=== PATIENT | male | born 1945 | race Caucasian/White ===

== ENCOUNTER → 2018-04-29 09:02 | Outpatient (CLI) | payer MEDICARE, OTHER, SELFPAY | PROVIDERS: PCP Family Medicine | DX: I10 Essential (primary) hypertension (principal); Z87.898 Personal history of other specified conditions | CPT/HCPCS: 36415; 83835 ==

== ENCOUNTER → 2018-05-05 07:16 | Outpatient (CLI) | payer MEDICARE, OTHER, SELFPAY ==
--- NOTE | 2018-05-05 07:21 | DI.RAD.S_ITS ---
PROCEDURE: XR CHEST 2V INDICATIONS: New onset AFib TECHNIQUE: 2 views of the chest were acquired. COMPARISON: [facility], , CHEST 2 VIEW, 07/05/2016, 9:36. FINDINGS: Surgical changes and devices: None. Lungs and pleura: No pleural effusions or pneumothorax. Lungs are clear. Bilateral nipple shadows, unchanged. Mediastinum: Mediastinal contours are normal. Heart size is normal. Mild aortic calcification. Bones and chest wall: No suspicious bony abnormalities. Soft tissues appear unremarkable. IMPRESSION: No acute cardiopulmonary abnormality Dictated by: Landon Daniels M.D. on 05/05/2018 at 8:29 Approved by: Landon Daniels M.D. on 05/05/2018 at 8:30
[2018-05-05 09:45] LABS: Add Manual Diff / Slide Review NO; Basophils Percent Auto 0.9 % (0-2); Eosinophils Percent Auto 1.7 % (2-4); Hematocrit 39.6 % (41-53); Hemoglobin 13.3 g/dL (13.5-17.5); Lymphocytes Percent Auto 33.9 % (25-40); Mean Corpuscular HGB Conc 33.7 % (30-36); Monocytes Percent Auto 8.9 % (3-14); Neutrophils Absolute Auto 2400 /uL (3000-5900); Neutrophils Percent Auto 54.6 % (50-75); Platelet Count 224 X10^3/uL (150-400); Red Blood Cell Count 4.44 X10^6/uL (4.5-5.9); White Blood Cell Count 4.4 X10^3/uL (4.5-11.0)
[2018-05-05 09:59] LABS: B Type Natriuretic Peptide 66.7 (<100)
[2018-05-05 10:01] LABS: Alanine Aminotransferase 27 IU/L (21-72); Albumin 4.2 g/dL (3.5-5.0); Albumin Globulin Ratio 1.5 (1.0-2.8); Alkaline Phosphatase 72 U/L (38-126); Aspartate Aminotransferase 26 IU/L (17-59); BUN Creatinine Ratio 26.7 (6-22); Bilirubin Total 0.6 mg/dL (0.2-1.3); Blood Urea Nitrogen 24 mg/dL (9-20); Carbon Dioxide 28 mmol/L (22-32); Chloride 104 mmol/L (98-107); Estimated Glomerular Filt Rate > 60.0 mL/min (>60); Globulin 2.8 g/dL (1.7-4.1); Glucose 107 mg/dL (80-110); HEMOLYSIS < 15 (0-50); Potassium 4.5 mmol/L (3.4-5.1); Sodium 142 mmol/L (137-145)
[2018-05-05 10:30] LABS: TSH w/ Reflex to FT4 2.33 uIU/mL (0.47-4.68)
== END ==
PROVIDERS: PCP Family Medicine; Visit Provider Family Medicine
DX: I48.91 Unspecified atrial fibrillation (principal)
CPT/HCPCS: 36415; 71046; 80053; 83880; 84443; 85025

== ENCOUNTER → 2018-05-08 09:09 | Outpatient (CLI) | payer MEDICARE, OTHER, SELFPAY ==
--- NOTE | 2018-05-08 09:13 | DI.ECHO.S_ITS ---
[facility]---------+ [facility] +---------+ : : [address] : [address] : : : : [id number] : : : : Phone: [phone] Echocardiogram Report + + :Name: ELIZABETH CHRISTINA Study Date: 05/08/2018 Height: 69 in : :[facility] Weight: 203 lb : : Gender: Male BSA: 2.1 m2 : :: 1945 Age: 73 yrs BP: 140/74 mmHg: :Reason For Study: Atrial fibrillation : : Performed By: Ophelia Escalona : :Referring: GERRI WOOTEN : + + Interpretation Summary 1. Normal left ventricular size, wall thickness and systolic function with an estimated EF of 60-65% 2. Upper limits of normal right ventricular size with normal systolic function. The estimated RVSP is 34 mm Hg. The estimated right atrial pressure is low. 3. Trace aortic insufficiency 4. Mild to moderate mitral regurgitation into a dilated left atrium. Threre is no old study available for review Procedure: A two-dimensional transthoracic echocardiogram with color flow and Doppler was performed. The study quality was technically good. Most of the acoustic windows were suboptimal, but the best imaging was obtained from the subcostal window. The patient was in normal sinus rhythm during the exam. Left Ventricle: The left ventricle is normal in size, wall thickness, and systolic function without any focal wall motion abnormalities. The left ventricle is normal in size. There is normal left ventricular wall thickness. The ejection fraction is estimated to be 60-65%. Grade II diastolic dysfunction. Right Ventricle: The right ventricle is borderline dilated. The right ventricular systolic function is normal. Atria: The left atrium is severely dilated. The right atrium is moderately dilated. No color doppler evidence for an ASD. Mitral Valve: There is a flat closure plane of the the mitral valve leaflets. There is mild to moderate mitral regurgitation. Aortic Valve: The aortic valve opens well. There is trace aortic regurgitation. Tricuspid Valve: The tricuspid valve leaflets are thin and pliable. There is trace tricuspid regurgitation. The right ventricular systolic pressure is estimated at 34 mmHg assuming a right atrial pressure of 3 mm Hg. Pulmonic Valve: The pulmonic valve is not well seen, but is grossly normal. There is mild pulmonic regurgitation. Great Vessels: The aortic root is normal size. The ascending aorta is mildly enlarged. The IVC is of normal diameter and collapses greater than 50% with a sniff. This suggests a low right atrial pressure of 3 mm Hg. Pericardium/ Pleura There is no pericardial effusion. There is no pleural effusion. MMode/2D Measurements & Calculations LVIDd: 5.1 cm Ao root diam: 3.3 cm LVIDs: 2.5 cm Aortic Jxn: 3.0 cm FS: 50.3 % asc Aorta Diam: 3.7 cm EPSS: 0.57 cm Ao Arch Diam (Prox Trans): 3.1 cm IVSd: 1.0 cm LVPWd: 1.1 cm LV hood. diameter/BSA (cm/m^2): 2.5 LV sys. diameter/BSA (cm/m^2): 1.2 LA dimension: 4.3 cm RA long axis: 5.3 cm LA A2 area: 29.0 cm2 RA area: 24.5 cm2 LA A4 area: 26.0 cm2 RA vol: 95.4 ml LA length (vol): 5.9 cm RA : 45.9 ml/m2 LA vol: 108.6 ml IVC diam: 1.1 cm LA vol index: 52.2 ml/m2 Doppler Measurements & Calculations Ao V2 max: 153.7 cm/sec MV E max daniel: 74.1 cm/sec Ao V2 mean: 102.2 cm/sec MV A max daniel: 65.3 cm/sec Ao max P.4 mmHg MV E/A: 1.1 Ao mean P.8 mmHg Med Peak E' Daniel: 3.9 cm/sec Ao V2 VTI: 34.6 cm E/E' med: 19.0 Lat Peak E' Daniel: 7.2 cm/sec E/E' lat: 10.4 E/e' average: 14.7 MV dec time: 0.24 sec MV P1/2t: 70.9 msec TR max daniel: 276.3 cm/sec MV P1/2t max daniel: 73.7 cm/sec TR max P.5 mmHg MVA(P1/2t): 3.1 cm2 PA V2 max: 106.1 cm/sec PA V2 mean: 55.1 cm/sec PA mean P.6 mmHg PA Accel Time: 0.06 sec MR flow rate: 94.8 cm3/sec MR PISA radius: 0.63 cm Reading Physician:KATERINA
== END ==
PROVIDERS: PCP Family Medicine; Visit Provider Family Medicine
DX: I48.91 Unspecified atrial fibrillation (principal)
CPT/HCPCS: 93306

== ENCOUNTER → 2018-05-19 14:00 | Outpatient (CLI) | payer MEDICARE, OTHER, SELFPAY | PROVIDERS: PCP Family Medicine; Visit Provider Family Medicine | DX: I48.91 Unspecified atrial fibrillation (principal) | CPT/HCPCS: 0296T; 0298T ==

== ENCOUNTER → 2018-05-30 08:03 | Outpatient (CLI) | payer MEDICARE, OTHER, SELFPAY ==
--- NOTE | 2018-05-30 09:21 | PM.TREADMILL ---
Cardiac Stress Test Report Referral & Results Date Patient Seen: 05/30/18 Time Patient Seen: 09:21 Requesting provider: Kendrick Gutierrez Indication: New onset paroxysmal atrial fibrillation Rest ECG: Unremarkable, sinus rhythm Procedure Note: Today following both written and verbal informed consent the patient was exercised according to a standard Carroll protocol patient went for a total of 7 min 10 sec achieving a maximum heart rate of 140 maximum systolic blood pressure of 190 to. This is approximately 10.1 METS. Exercise was terminated at this point because of targets having been reached. Patient was also given Cardiolite through a previously started Hep-Lock IV by the nuclear plant instrument technician approximately 1 minute prior to the cessation of exercise. There are no ST segment changes Occasional PACs and PVCs and a barely conducted sinus beats were identified Normal heart rate and blood pressure response to exercise Functional aerobic impairment rated 0 on the sedentary scale, patient's certainly could have continued further had not met his heart rate and blood pressure targets Impression: No evidence of ischemia Better than average exercise capacity Perfusion imaging will be reported separately Please note: Actual ECG tracings can be found in the PACS system.
--- NOTE | 2018-06-02 13:34 | DI.NM.S_ITS ---
DATE OF SERVICE: 05/30/2018 PROCEDURE PERFORMED: Exercise treadmill stress and rest myocardial perfusion imaging study with gating to assess ejection fraction and regional wall motion. ORDERING PROVIDER: Kendrick Gutierrez MD INDICATIONS: The patient is a 73-year-old male with a recent episode of new- onset atrial fibrillation. EXERCISE TREADMILL TESTING: The patient was able to exercise for a total of 7 minutes 10 seconds on a standard Carroll protocol, suggesting average exercise capacity with an DWAYNE of 0%. He had a normal heart rate and blood pressure response, achieving a maximum heart rate of 140 BPM (94% of his predicted maximum). He had no chest discomfort reported. His resting ECG shows sinus rhythm at 63 BPM. With exercise, there are no significant ECG changes or arrhythmias. At 6 minutes 7 seconds of exercise, at a heart rate of 137 BPM, 26.1 mCi of technetium-99 Myoview was injected and the patient was imaged 15 minutes later using a gated SPECT acquisition protocol. The patient returned 3 days later and was reinjected with an additional 24.5 mCi of technetium-99 Myoview and was imaged 30 minutes later, again using a gated SPECT acquisition protocol. FINDINGS: 1. RAW DATA: There was good myocardial tracer uptake. The lung/heart ratio was normal at 0.37 with a normal TID ratio of 0.83. 2. QUANTITATIVE GATED SPECT: Post stress ejection fraction is estimated at 74% without any focal wall motion abnormality. Resting ejection fraction is estimated at 75% with an end-diastolic volume of 106 mL. 3. MYOCARDIAL PERFUSION IMAGING: Post stress supine images show a completely normal myocardial perfusion pattern without any perfusion defects, supported by normal perfusion imaging in the prone position. The resting images show an identical perfusion pattern without any areas of improvement. CONCLUSION: 1. Normal myocardial perfusion study. 2. No evidence for myocardial ischemia or previous myocardial infarction. 3. Normal left ventricular systolic function without any focal wall motion abnormality. 4. Average exercise capacity without angina or ECG changes of ischemia. He remained in sinus rhythm throughout the study without any arrhythmias. Rajan Farhat - WINTER/gabino/vickie doc#: [id number]/job#: [id number] dd: 06/02/2018 12:28:00 dt: 06/02/2018 13:23:00 DICTATING MD/COPIES TO: Cachorro Hernandez MD; Kendrick Gutierrez MD COPIES MNE: KENNA FIGUEROA
== END ==
PROVIDERS: Family Provider Family Medicine; PCP Family Medicine; Visit Provider Family Medicine
DX: I48.91 Unspecified atrial fibrillation (principal)
CPT/HCPCS: 78452; 93016; 93017; 93018; A9502

== ENCOUNTER → 2018-10-22 10:48 | Outpatient (CLI) | payer MEDICARE, OTHER, SELFPAY | PROVIDERS: Family Provider Family Medicine; PCP Family Medicine; Visit Provider Internal Medicine | DX: I10 Essential (primary) hypertension (principal) | CPT/HCPCS: 36415; 83735 ==

== ENCOUNTER 2019-02-20 13:46 | Emergency (ER) | payer MEDICARE, OTHER, SELFPAY ==
[2019-02-20 13:50] VITALS: BP 139/82; PULSE 86; RESP 18; TEMP 36.9; O2SAT 99; BMI 30.1
[2019-02-20 15:20] VITALS: BP 151/73; PULSE 79; RESP 26; O2SAT 98
[2019-02-20] MEDS: SODIUM CHLORIDE 0.9% 1,000 ML 1000 ML IV (15:28)
[2019-02-20 15:30] VITALS: BP 140/75; PULSE 78; RESP 23; O2SAT 97
[2019-02-20 15:38] LABS: Add Manual Diff / Slide Review NO; Basophils Absolute Auto 0 /uL (0-100); Basophils Percent Auto 0.2 % (0-2); Eosinophils Absolute Auto 0 /uL (0-450); Eosinophils Percent Auto 0.3 % (2-4); Hematocrit 42.6 % (41-53); Hemoglobin 14.1 g/dL (13.5-17.5); Lymphocytes Absolute Auto 400 /uL (1100-4500); Lymphocytes Percent Auto 6.9 % (25-40); Mean Corpuscular HGB Conc 33.1 % (30-36); Mean Corpuscular Hemoglobin 29.8 PG (26-34); Monocytes Absolute Auto 200 /uL (0-900); Monocytes Percent Auto 4.1 % (3-14); Neutrophils Absolute Auto 5400 /uL (1500-7000); Neutrophils Percent Auto 88.5 % (50-75); Platelet Count 210 X10^3/uL (150-400); Red Blood Cell Count 4.73 X10^6/uL (4.5-5.9); Red Cell Distribution Width 12.7 % (11.6-14.8); White Blood Cell Count 6.1 X10^3/uL (4.5-11.0)
[2019-02-20 15:44] LABS: Alanine Aminotransferase 28 IU/L (21-72); Albumin 4.7 g/dL (3.5-5.0); Albumin Globulin Ratio 1.4 (1.0-2.8); Alkaline Phosphatase 78 U/L (38-126); Aspartate Aminotransferase 26 IU/L (17-59); BUN Creatinine Ratio 19.1 (6-22); Bilirubin Total 0.9 mg/dL (0.2-1.3); Blood Urea Nitrogen 21 mg/dL (9-20); Calcium 9.5 mg/dL (8.4-10.2); Carbon Dioxide 23 mmol/L (22-32); Chloride 105 mmol/L (98-107); Estimated Glomerular Filt Rate > 60.0 mL/min (>60); Globulin 3.3 g/dL (1.7-4.1); Glucose 130 mg/dL (80-110); HEMOLYSIS < 15 (0-50); Potassium 3.9 mmol/L (3.4-5.1); Sodium 139 mmol/L (137-145)
--- NOTE | 2019-02-20 15:54 | ED.NAVMDI ---
HPI - Nausea/Vomiting/Diarrhea General Chief complaint: Nausea/Vomiting/Diarrhea Stated complaint: SEVERE DIARRHEA Time Seen by Provider: 02/20/19 15:54 Source: patient and family () Mode of arrival: ambulatory Limitations: no limitations History of Present Illness HPI Narrative: This is a 73-year-old male who comes to the emergency department with complaint of nausea and diarrhea. Patient states he just started Flomax yesterday he took his 1st tablet before bed. At about 2:00 a.m. morning he woke up and had probably 10-15 episodes of brown diarrhea. He states about a qt of fluid with each 1. He has been nauseated a little bit but has not been vomiting. He has not drank very much fluid at all he has had a couple small snacks. He denies any abdominal pain, he denies any dizziness, no chest pain, no shortness of breath, no passing out. No fevers that he is aware of. Maybe some very mild nasal congestion, slight dry cough. Feels like he has been run over by a truck has muscle aches. Patient states he was started on the Flomax because he saw a urologist for enlarged prostate. Patient does take medication for atrial fibrillation including Eliquis, he takes amlodipine, spironolactone levothyroxine as well as carvedilol. Patient has had multiple orthopedic surgeries and eye surgeries. 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 Related Data Home Medications Medication Instructions Recorded Confirmed [FLUTICASONE] 1 spray QDAY #0 08/27/16 06/25/18 tolterodine ER 4 mg 4 mg PO DAILY 05/01/18 06/25/18 capsule,extended release 24 hr apixaban [Eliquis] 5 mg PO 02/20/19 Previous Rx's Medication Instructions Recorded ciclopirox [Penlac] 6.6 ml TP QDAY #1 bot 06/25/17 atorvastatin [Lipitor] 40 mg PO HS #90 tab 08/13/17 telmisartan [Micardis] 80 mg PO QDAY #90 tab 08/13/17 rivaroxaban 20 mg tablet 20 mg PO DAILY #30 tab 05/01/18 metoprolol succinate ER 50 mg See Rx Instructions PO Q12H #270 06/26/18 tablet,extended release 24 hr tab hydrochlorothiazide 25 mg tablet 25 mg PO QDAY #90 tab 07/23/18 levothyroxine 88 mcg capsule 88 mcg PO QDAY #90 cap 07/23/18 Allergies Allergy/AdvReac Type Severity Reaction Status Date / Time No Known Drug Allergies Allergy Unknown Verified 06/25/18 13:41 [NO KNOWN DRUG ALLERGIES] Review of Systems Review of Systems ROS Unobtainable: All systems reviewed & are unremarkable except as noted in HPI and below Constitutional Denies chills, Denies fever(s), Denies lethargy, Reports poor appetite and Denies weakness Cardiovascular Denies chest pain, Denies diaphoresis, Denies syncope, Denies edema, Denies lightheadedness, Denies palpitations, Denies dyspnea, Denies dyspnea on exertion and Denies orthopnea Respiratory Denies chest congestion, Denies cough, Denies dyspnea, Denies dyspnea on exertion, Denies stridor and Denies wheezing Gastrointestinal Gastrointestinal: Denies abdominal pain, Denies melena, Denies hematochezia, Denies change in bowel habits, Reports diarrhea, Reports nausea and Denies vomiting Genitourinary Denies hematuria, Denies flank pain, Denies urinary frequency, Reports urinary hesitancy, Denies urinary incontinence and Denies urinary urgency Integumentary/Breasts Denies rash Neurologic Denies syncope and Denies weakness Endocrine Denies palpitations Allergic/Immunologic Denies wheezing FORMERLY [facility] Medical History Atrial fibrillation (Chronic) Erectile dysfunction (Chronic 10/27/15) Essential hypertension (Chronic 10/27/15) Gastroesophageal reflux disease without esophagitis (Chronic 10/27/15) Hyperlipidemia (Chronic 10/27/15) Hypothyroidism (Chronic 10/27/15) Diverticular disease (Chronic) Chicken pox (Resolved 1951) Colon polyps (Resolved 1992) Dislocation of right middle finger (Resolved 2003) H/O coronary angiogram (Resolved 06/2011) Measles (Resolved 1951) Mumps (Resolved 1952) Shoulder pain (Resolved 2001) Thyroid nodule (Resolved 1978) Surgical History History of adrenal surgery (Resolved 07/2011) History of knee replacement (Resolved 09/2011) History of knee replacement (Resolved 09/2012) History of left cataract surgery (Resolved 10/05/15) History of removal of cyst (Resolved 1962) History of right cataract surgery (Resolved 09/15/15) History of sinus surgery (Resolved 01/2011) History of surgical removal of ganglion cyst (Resolved 2005) History of thyroid surgery (Resolved 1978) Status post arthroscopy (Resolved 1982) Status post arthroscopy (Resolved 04/06/13) Status post colonoscopy (Resolved 07/06/14) Status post hernia repair (Resolved 1971) Status post hernia repair (Resolved 1992) Status post hernia repair (Resolved 2006) Status post left foot surgery (Resolved 2004) Status post right foot surgery (Resolved 09/2014) Status post rotator cuff repair (Resolved 2001) Status post rotator cuff repair (Resolved 2002) Status post tonsillectomy and adenoidectomy (Resolved 1953) Status post trigger finger release (Resolved 2000) Status post trigger finger release (Resolved 2001) Family History Mother Age: 95 Stroke Father Alzheimer's disease Sister No problems noted. Social History marital status: Smoking Status: Never smoker alcohol intake: current (1-2 A DAY ) substance use type: does not use Family History Mother Age: 95 Stroke Father Alzheimer's disease Sister No problems noted. Social History marital status: Smoking Status: Never smoker alcohol intake: current (1-2 A DAY ) substance use type: does not use Exam Narrative Exam Narrative: GENERAL: Alert and oriented x three, well-nourished, well-appearing male in no acute distress. HEENT: Head normocephalic, atraumatic, EOMI, pupils reactive, face symmetric, moist mucous membranes NECK: Supple, full range of motion CARDIOVASCULAR: Regular rate and rhythm without murmurs, rubs or gallops. RESPIRATORY: Breath sounds equal bilaterally, no wheezes rales or rhonchi. ABDOMEN: Soft, nontender. Normoactive bowel sounds all 4 quadrants. No guarding or rebound, rigidity, no mass : No CVA tenderness EXTREMITIES: Normal range of motion, no clubbing or edema. Neurovascularly intact NEUROLOGICAL: Cranial nerves II through XII grossly intact. Moving all extremities SKIN: Warm, dry, no petechiae, no rashes or lesions. Initial Vital Signs Initial Vital Signs: Vital Signs Temperature 98.5 F 02/20/19 13:50 Pulse Rate 86 02/20/19 13:50 Respiratory Rate 18 02/20/19 13:50 Blood Pressure 139/82 02/20/19 13:50 Pulse Oximetry 99 02/20/19 13:50 Course Orders Ordered: ED Orders 02/20/19 15:25 Complete Blood Count AUTO DIFF Stat Comprehensive Metabolic Panel Stat 02/20/19 16:40 Stool Culture Stat 02/20/19 16:45 Influenza A and B by PCR Rapid Stat Discontinued Medications Sodium Chloride (Normal Saline 0.9%) 1,000 mls @ 1,000 mls/hr IV BOLUS ONE Stop: 02/20/19 16:20 Last Infusion: 02/20/19 16:27 Dose: 0 mls/hr Admin: 02/20/19 15:28 Dose: 1,000 mls/hr Ondansetron HCl (Zofran) 4 mg IV NOW ONE Stop: 02/20/19 15:22 Vital Signs - 8 hr 02/20/19 13:50 02/20/19 15:20 02/20/19 15:30 Temperature 98.5 F Pulse Rate 86 79 78 Respiratory Rate 18 26 H 23 Blood Pressure 139/82 Blood Pressure [Left Arm] 151/73 H 140/75 Pulse Oximetry 99 98 97 02/20/19 17:30 02/20/19 17:59 Temperature Pulse Rate 72 73 Respiratory Rate 19 21 Blood Pressure 132/66 Blood Pressure [Left Arm] 132/66 Pulse Oximetry 99 99 MDM - Nausea/Vomiting/Diarrhea Lab Data Attestation: I reviewed the patient's lab results. Result diagrams: 02/20/19 15:25 02/20/19 15:25 Lab Results 02/20/19 02/20/19 02/20/19 Range/Units 15:25 15:25 16:45 WBC 6.1 (4.5-11.0) X10^3/uL RBC 4.73 (4.5-5.9) X10^6/uL Hgb 14.1 (13.5-17.5) g/dL Hct 42.6 (41-53) % MCV 90.0 (80-100) fL MCH 29.8 (26-34) PG MCHC 33.1 (30-36) % RDW 12.7 (11.6-14.8) % Plt Count 210 (150-400) X10^3/uL Neut % (Auto) 88.5 H (50-75) % Lymph % (Auto) 6.9 L (25-40) % [place] % (Auto) 4.1 (3-14) % Eos % (Auto) 0.3 L (2-4) % Baso % (Auto) 0.2 (0-2) % Neut # (Auto) 5400 (4618-2119) /uL Lymph # (Auto) 400 L (7755-5000) /uL [place] # (Auto) 200 (0-900) /uL Eos # (Auto) 0 (0-450) /uL Baso # (Auto) 0 (0-100) /uL Sodium 139 (137-145) mmol/L Potassium 3.9 (3.4-5.1) mmol/L Chloride 105 (98-107) mmol/L Carbon Dioxide 23 (22-32) mmol/L BUN 21 H (9-20) mg/dL Creatinine 1.10 (0.66-1.25) mg/dL Estimated GFR > 60.0 (>60) mL/min BUN/Creatinine Ratio 19.1 (6-22) Glucose 130 H (80-110) mg/dL Calcium 9.5 (8.4-10.2) mg/dL Total Bilirubin 0.9 (0.2-1.3) mg/dL AST 26 (17-59) IU/L ALT 28 (21-72) IU/L Alkaline Phosphatase 78 (38-126) U/L Total Protein 8.0 (6.3-8.2) g/dL Albumin 4.7 (3.5-5.0) g/dL Globulin 3.3 (1.7-4.1) g/dL Albumin/Globulin Ratio 1.4 (1.0-2.8) Influenza A & B (PCR) Negative (Negative) Urine Dip Bedside Urine Glucose Negative Bedside Urine Bilirubin + 1 Bedside Urine Ketone - Negative Urine Specific [place] 1.030 Bedside Urine Occult Blood - Negative Bedside Urine pH 5.5 Bedside Urine Protein +/- 15 Bedside Urine Urobilinogen - Negative Bedside Urine Nitrite - Negative Bedside Urine Leukocytes - Negative Esterase MDM Narrative Medical decision making narrative: Patient comes in with complaint of multiple episodes of diarrhea after starting a new medication last night. He started tamsulosin which according to the side effects there is this noted. We discussed that he is also just felt under the weather. Discussed checking influenza swab which he is agreeable. He is getting 1 L of fluids. He has not been drinking much fluid today so we discussed that he needs to increase his fluid intake. Discussed with patient possibly could be from the tamsulosin. Recommend stopping it, talking with Dr. Brasher his urologist on Saturday about re-starting or switching to new medication. Patient has not had more BM since 2pm. Discharge Plan Departure Patient Disposition: Home Clinical Impression: Diarrhea Discharge Date/Time: 02/20/19 18:00 Interventions: ED Discharge Assessment Last Done: 02/20/19 17:59 Instructions: Diarrhea Activity Restrictions/Additional Instructions: Follow-up with your primary care physician in the next 3-5 days if your symptoms have not completely resolved. Continue with your home medications as prescribed. Stop your tamsulosin, if your symptoms are totally resolved after the next week you could try taking tamsulosin again if your symptoms recur to not take it anymore. Make sure your drinking plenty of fluids she should be drinking 6-8, 8 oz glasses of water daily. You may supplement with other options for hydration if you prefer. Return to the emergency department for persistent fevers, new abdominal pain, persistent vomiting, black or bloody stools, signs of dehydration or other new or concerning symptoms. Prescriptions: No Action [FLUTICASONE] 1 spray QDAY Qty: 0 RF: 0 ciclopirox [Penlac] 6.6 ML solution 6.6 ml TP QDAY Qty: 1 RF: 0 atorvastatin [Lipitor] 40 MG tablet 40 mg PO HS Qty: 90 RF: 3 telmisartan [Micardis] 80 MG tablet 80 mg PO QDAY Qty: 90 RF: 3 metoprolol succinate 50 mg tablet extended release 24 hr See Rx Instructions PO Q12H Qty: 270 RF: 3 levothyroxine [Tirosint] 88 mcg capsule 88 mcg PO QDAY Qty: 90 RF: 3 hydrochlorothiazide 25 mg tablet 25 mg PO QDAY Qty: 90 RF: 3 tolterodine 4 mg capsule,extended release 24hr 4 mg PO DAILY RF: 0 rivaroxaban [Xarelto] 20 mg tablet 20 mg PO DAILY Qty: 30 RF: 3 Eliquis 5 mg Tablet 5 mg PO RF: 0 Referrals: Kendrick Gutierrez MD [Physician] -
[2019-02-20 17:11] LABS: Influenza A and B by PCR Rapid Negative (Negative)
[2019-02-20 17:30] VITALS: BP 132/66; PULSE 72; RESP 19; O2SAT 99
[2019-02-20 17:59] VITALS: BP 132/66; PULSE 73; RESP 21; O2SAT 99
== END 2019-02-20 18:00 | disposition home or self-care (01) ==
PROVIDERS: Emergency Provider Emergency Medicine; Family Provider Internal Medicine; PCP Internal Medicine
DX: R19.7 Diarrhea, unspecified (principal); R11.2 Nausea with vomiting, unspecified; R05 Cough; R09.81 Nasal congestion; I48.2 Chronic atrial fibrillation; Z79.01 Long term (current) use of anticoagulants
CPT/HCPCS: 36591; 80053; 81003; 85025; 87045; 87177; 87400; 87899; 96360; 96361; 99283; 99284